=== PATIENT | female | born 1995 | race Caucasian/White ===

== ENCOUNTER 2016-10-17 19:47 | Emergency (ER) | payer MEDICAID ==
[~2016-10-17] VITALS: Ht 154.9 cm; Wt 63.5 kg
[2016-10-17 20:00] VITALS: BP 130/78; PULSE 80; RESP 18; TEMP 97.6; O2SAT 100
[2016-10-17 21:45] LABS: BILIRUBIN,URINE NEGATIVE (NEGATIVE); CLARITY/URINE CLEAR (CLEAR); COLOR,URINE YELLOW (YELLOW); GLUCOSE,URINE NEGATIVE (NEGATIVE); KETONES,URINE NEGATIVE (NEGATIVE); LEUKOCYTE ESTERASE ,URINE TRACE (NEGATIVE); NITRITE, URINE NEGATIVE (NEGATIVE); PH,URINE 6.5 (5.0-8.0); PROTEIN URINE NEGATIVE (NEGATIVE); UROBILINOGEN,URINE 0.2 (0.2-1.0)
[2016-10-17 21:46] LABS: BLOOD, URINE TRACE (NEGATIVE)
[2016-10-17 21:47] LABS: BACTERIA,URINE FEW /HPF (None Seen); MUCUS,URINE None Seen /LPF (None Seen); RBC,URINE NONE SEEN /HPF (0-3)
[2016-10-17 22:51] VITALS: BP 126/72; PULSE 78; RESP 18; TEMP 97.6; O2SAT 100
[2016-10-22 14:07] LABS: CHLAMYDIA TRACHOMATIS NAA Negative (Negative); NEISSERIA GONORRHOEAE NAA Negative (Negative)
== END 2016-10-17 22:50 | disposition home or self-care (01) ==
LOC: SED 19:47
DX: N39.0 Urinary tract infection, site not specified (principal); J45.909 Unspecified asthma, uncomplicated
CPT/HCPCS: 81000-TC; 81025; 87205-TC; 87210-TC; 87491; 87591; 99284

== ENCOUNTER 2018-09-09 19:23 | Emergency (ER) | payer SELFPAY ==
[~2018-09-09] VITALS: Ht 154.9 cm; Wt 61.2 kg
[2018-09-09 19:26] VITALS: BP_SYST 129
--- NOTE | 2018-09-09 19:30 | NUR ---
Pt placed to ER bed 07, to gown.
--- NOTE | 2018-09-09 19:44 | NUR ---
Pt C/O vaginal bleeding since this morning. Pt states for the past week she has been experiencing unusal vaginal odor and woke up this morning with bright red, thick spotting. Pt states she just finished her period, denies pain, shortness of breath, nausea or vomiting at this time. Vital signs are stable will continue to monitor.
--- NOTE | 2018-09-09 19:46 | NUR ---
ER Dr. Sanon at bedside examining patient.
--- NOTE | 2018-09-09 20:10 | NUR ---
Pelvic exam performed by DR MARCH with NELDA STEELE at bedside for entire examination. Patient tolerated procedure WELL. Patient assisted to position of comfort after examination.
--- NOTE | 2018-09-09 20:10 | NUR ---
Dr. Sanon at bedside for pelvic exam.
--- NOTE | 2018-09-09 21:20 | NUR ---
Pt is resting quietly in bed, no acute distress noted at this time. Vital signs stable, will continue to monitor.
--- NOTE | 2018-09-09 21:49 | NUR ---
Patient given written and verbal discharge instructions and verbalizes understanding. ER MD discussed with patient the results and treatment provided. Patient in stable condition. ID arm band removed. Rx of Provera given. Patient educated on pain management and to follow up with PMD. Pain Scale 0/10. Opportunity for questions provided and answered. Medication side effect fact sheet provided.
[2018-09-09 21:50] VITALS: BP_SYST 111
[2018-09-11 23:07] LABS: CHLAMYDIA TRACHOMATIS NAA Negative (Negative); NEISSERIA GONORRHOEAE NAA Negative (Negative)
== END 2018-09-09 21:49 | disposition home or self-care (01) ==
LOC: SED 19:23
DX: N93.8 Other specified abnormal uterine and vaginal bleeding (principal); J45.909 Unspecified asthma, uncomplicated; R03.0 Elevated blood-pressure reading, without diagnosis of hypertension
CPT/HCPCS: 87205-TC; 87210-TC; 87491; 87591; 99283